=== PATIENT | female | born 1970 | race African-American/Black ===

== ENCOUNTER 2017-07-20 05:00 | Emergency (ER) | payer OTHER ==
[~2017-07-20] VITALS: Ht 172.7 cm; Wt 122.0 kg
[~2017-07-20 05:00] MED LIST: ACETAMINOPHEN-1 EAC1 PO; CIPRO500 MG PO; COLACE100 MG PO; IBUPROFEN 800800 M1 PO; MEDROLDOSEPACK PO; MIRALAX17 GM PO; TRAMADOL 50 MG50 MG PO; ZPAK PO
[2017-07-20] MEDS ORDERED: PREDNISONE50 MG PO (05:36)
[2017-07-20] MEDS ORDERED: FLONASE 0.05%50 MCG NASAL (05:49)
[2017-07-20 06:08] VITALS: BP 138/70
== END 2017-07-20 06:09 | disposition home or self-care (01) ==
LOC: M.ERS 05:00
DX: J02.8 Acute pharyngitis due to other specified organisms (principal); B97.89 Other viral agents as the cause of diseases classified elsewhere; Z88.0 Allergy status to penicillin

== ENCOUNTER 2019-10-26 19:59 | Emergency (ER) | payer OTHER ==
[~2019-10-26] VITALS: Ht 172.7 cm; Wt 96.6 kg
[~2019-10-26 19:59] MED LIST changes: +FLONASE 0.05%50 MCG NASAL; +PREDNISONE50 MG PO
[2019-10-26] MEDS ORDERED: NEXIUM40 M2 PO (20:15)
[2019-10-26] MEDS ORDERED: BENTYL 10 MG CA10 M1 PO (20:15)
[2019-10-26 20:30] LABS: URINE BILIRUBIN NEGATIVE (Negative); URINE BLOOD NEGATIVE (Negative); URINE CLARITY CLEAR; URINE COLOR YELLOW; URINE GLUCOSE-RANDOM NEGATIVE (Negative); URINE KETONES NEGATIVE (Negative); URINE LEUKOCYTES-REFLEX NEGATIVE (Negative); URINE NITRITE-REFLEX NEGATIVE (Negative); URINE PROTEIN NEGATIVE (Negative); URINE SPECIFIC GRAVITY <= 1.005 (1.005-1.030); URINE UROBILINOGEN 0.2 E.U./dl (0.2-1.0)
[2019-10-26 20:37] LABS: ABSOLUTE BASOPHILS 0.1 thou/uL (0.0-0.2); ABSOLUTE EOSINOPHILS 0.1 thou/uL (0.0-0.7); ABSOLUTE LYMPHOCYTES 2.4 thou/uL (0.8-5.3); ABSOLUTE MONOCYTES 0.4 thou/uL (0.0-1.2); ABSOLUTE NEUTROPHILS 2.7 thou/uL (1.6-8.1); BASOPHILS 1.4 %; EOSINOPHILS 2.1 %; HEMATOCRIT 39.7 % (37.0-47.0); HEMOGLOBIN 13.1 gm/dL (12.0-15.0); LYMPHOCYTES 42.6 %; MCH 29.1 pg (26.0-34.0); MCHC 33.1 g/dL (28.0-37.0); MCV 87.9 fL (80.0-100.0); MONOCYTES 6.8 %; MPV 9.6 fl. (7.2-11.1); NUCLEATED RBCS 0 /100WBC; PLATELET COUNT* 186 thou/uL (150-400); POLYS 47.1 %; RBC 4.51 mil/uL (4.20-5.00); RDW-CV 13.4 % (10.5-14.5); WBC 5.7 thou/uL (4.0-11.0)
[2019-10-26 20:43] LABS: CALCIUM 8.6 mg/dL (8.5-10.1); CREATININE 1.1 mg/dL (0.6-1.3); POTASSIUM 3.7 mmol/L (3.5-5.1)
[2019-10-26 20:48] LABS: ALBUMIN 3.8 g/dL (3.4-5.0); TOTAL BILIRUBIN 0.3 mg/dL (<0.1-1.0); TOTAL PROTEIN 7.7 g/dL (6.4-8.2)
[2019-10-26] MEDS ORDERED: NORCO 5-325 TA1 EAC1 PO (23:04)
[2019-10-26] MEDS ORDERED: ZOFRAN ODT4 MG DISSOLVE (23:04)
[2019-10-26] MEDS ORDERED: IBUPROFEN 800800 M1 PO (23:04)
[2019-10-26 23:09] VITALS: BP 145/75
--- NOTE | 2019-10-27 16:11 | EKG ---
[place] [address] ELECTROCARDIOGRAM REPORT Name: CAILIN CARABALLO Room: [facility]#: [id number] Admission: 10/26/19 Attend Phys: Discharge: 10/26/19 Date of : 74 Date of Service: 10/26/192040 Report #: [id number] THIS REPORT FOR: //name// [facility] ED Test Date: 2019-10-26 Test Time: 20:41:44 Pat Name: CAILIN CARABALLO Department: Room: Gender: [employer]ator: : 1970 Requested By: Alexis Sherman Order Number: [id number] MD: Delbert Ritter Measurements Intervals [place] Rate: 62 P: 54 DC: 188 QRS: 28 QRSD: 88 T: 34 QT: 418 QTc: 425 Interpretive Statements Sinus rhythm Probable left atrial enlargement ST elev, probable normal early repol pattern No previous ECG available for comparison Electronically Signed On 10-27-2019 16:09:04 CDT by Delbert Ritter [email or web address] <ELECTRONICALLY SIGNED> By: Delbert Ritter MD, [facility] 10/27/19 1609 40 40 Delbert Ritter MD, FAC /EPI
== END 2019-10-26 23:15 | disposition home or self-care (01) ==
LOC: M.ERS 19:59
PROVIDERS: Emergency Medicine Emergency Medical Services
DX: R10.11 Right upper quadrant pain (principal); R19.7 Diarrhea, unspecified; R11.0 Nausea; N80.9 Endometriosis, unspecified; Z88.1 Allergy status to other antibiotic agents; Z98.890 Other specified postprocedural states